=== PATIENT | male | born 1960 | race Caucasian/White ===

== ENCOUNTER 2017-11-22 18:05 | Inpatient (IN) | payer OTHER ==
[2017-11-22] MEDS ORDERED: ONDANSETRON 4 MG INJ IV ×2 (20:30→22:00)
[2017-11-22 20:52] LABS: WHITE BLOOD COUNT 11.4 10^3/ul (4.8-10.8)
[2017-11-22 20:52] LABS: ADD MAN DIFF? NO; BASOPHILS % 0.1 % (0.0-2.0); EOSINOPHILS % 0.1 % (0.0-7.0); HEMATOCRIT 38.2 % (42.0-52.0); HEMOGLOBIN 12.9 g/dl (14.0-18.0); LYMPHOCYTES # 1.1 10^3/ul (0.8-2.9); LYMPHOCYTES % 9.3 % (15.0-51.0); MEAN CORPUSCULAR HEMOGLOBIN 28.2 pg (29.0-33.0); MEAN CORPUSCULAR HGB CONC 33.8 g/dl (32.0-37.0); MEAN CORPUSCULAR VOLUME 83.6 fl (82.0-101.0); MEAN PLATELET VOLUME 9.2 fl (7.4-10.4); MONOCYTE # 0.9 10^3/ul (0.3-0.9); MONOCYTES % 7.7 % (0.0-11.0); NEUTROPHIL # 9.4 10^3/ul (1.6-7.5); NEUTROPHILS % 82.5 % (39.0-77.0); PLATELET COUNT 308 10^3/UL (140-415); RED BLOOD COUNT 4.57 10^6/ul (4.70-6.10); RED CELL DISTRIBUTION WIDTH 17.2 % (11.5-14.5)
[2017-11-22 21:06] LABS: HEMOGLOBIN A1C 6.1 % (0-5.9)
[2017-11-22 21:20] LABS: ALANINE AMINOTRANSFERASE 42 IU/L (13-69); ALBUMIN 3.2 g/dl (3.3-4.9); ALBUMIN/GLOBULIN RATIO 1.03; ALKALINE PHOSPHATASE 231 IU/L (42-121); ANION GAP 15 (8-16); ASPARTATE AMINO TRANSFERASE 63 IU/L (15-46); BILIRUBIN,INDIRECT 0.5 mg/dl (0-1.1); BILIRUBIN,TOTAL 0.5 mg/dl (0.2-1.3); BLOOD UREA NITROGEN 36 mg/dl (7-20); CALCIUM 8.8 mg/dl (8.4-10.2); CARBON DIOXIDE 38 mmol/L (21-31); CHLORIDE 74 mmol/L (97-110); CREATINE KINASE 32 IU/L (23-200); CREATININE 1.12 mg/dl (0.61-1.24); GLUCOSE 100 mg/dl (70-220); PHOSPHORUS 3.5 mg/dl (2.5-4.9); POTASSIUM 4.3 mmol/L (3.5-5.1); SODIUM 123 mmol/L (135-144); TOTAL PROTEIN 6.3 g/dl (6.1-8.1)
[2017-11-22 21:29] LABS: CK INDEX 1.8; CK-MB 0.58 ng/ml (0.0-2.4); TROPONIN-I 0.027 ng/ml (0.000-0.120)
[2017-11-22] MEDS ORDERED: IPRATROPIUM (NEB) 0.5 MG/2.5 ML AMP NEB (22:00)
[2017-11-22] MEDS ORDERED: NACL 0.9% 3 ML SYG IV (22:00)
[2017-11-22] MEDS: MIDODRINE 5 MG TAB PO (23:21)
[2017-11-22] MEDS: ALBUMIN HUMAN 25% 100 ML IV (23:22)
[2017-11-23] MEDS: ZOLPIDEM 5 MG TAB PO ×2 (00:07→20:30)
[2017-11-23] MEDS: ACETAMINOPHEN 500 MG TAB PO ×2 (00:07→20:29)
[2017-11-23] MEDS: SODIUM CHLORIDE 1 GM TAB PO ×4 (02:05→20:28)
[2017-11-23 02:14] LABS: ADD MAN DIFF? NO
[2017-11-23 02:16] LABS: WHITE BLOOD COUNT 10.8 10^3/ul (4.8-10.8)
[2017-11-23 02:16] LABS: BASOPHILS % 0.2 % (0.0-2.0); EOSINOPHILS % 0.1 % (0.0-7.0); HEMOGLOBIN 10.9 g/dl (14.0-18.0); LYMPHOCYTES # 1.1 10^3/ul (0.8-2.9); LYMPHOCYTES % 10.4 % (15.0-51.0); MEAN CORPUSCULAR HEMOGLOBIN 27.8 pg (29.0-33.0); MEAN CORPUSCULAR HGB CONC 34.1 g/dl (32.0-37.0); MEAN CORPUSCULAR VOLUME 81.6 fl (82.0-101.0); MONOCYTES % 8.9 % (0.0-11.0); NEUTROPHIL # 8.6 10^3/ul (1.6-7.5); NEUTROPHILS % 80.1 % (39.0-77.0); PLATELET COUNT 232 10^3/UL (140-415); RED BLOOD COUNT 3.92 10^6/ul (4.70-6.10); RED CELL DISTRIBUTION WIDTH 17.2 % (11.5-14.5)
[2017-11-23 02:31] LABS: HEMOGLOBIN A1C 6.1 % (0-5.9)
[2017-11-23 02:42] LABS: ANION GAP 13 (8-16); BLOOD UREA NITROGEN 35 mg/dl (7-20); CARBON DIOXIDE 36 mmol/L (21-31); CHLORIDE 79 mmol/L (97-110); CREATINE KINASE 30 IU/L (23-200); CREATININE 1.19 mg/dl (0.61-1.24); GLUCOSE 98 mg/dl (70-220); SODIUM 125 mmol/L (135-144)
[2017-11-23 02:49] LABS: B-TYPE NATRIURETIC PEPTIDE 8940 PG/ML (0-125)
[2017-11-23 02:54] LABS: CK INDEX 1.8; CK-MB 0.53 ng/ml (0.0-2.4); TROPONIN-I 0.045 ng/ml (0.000-0.120)
[2017-11-23 02:55] LABS: LACTIC ACID 1.4 mmol/L (0.5-2.0)
[2017-11-23] MEDS: POTASSIUM CHLORIDE (SR) 20 MEQ TAB PO ×2 (05:07→09:53)
[2017-11-23 06:22] LABS: ADD UMIC YES; UR ASCORBIC ACID NEGATIVE (NEGATIVE); UR BILIRUBIN (Dip) NEGATIVE (NEGATIVE); UR BLOOD (Dip) 3+ mg/dL (NEGATIVE); UR CLARITY CLEAR (CLEAR); UR COLOR YELLOW (YELLOW); UR GLUCOSE (Dip) NEGATIVE (NEGATIVE); UR KETONES (Dip) NEGATIVE (NEGATIVE); UR LEUKOCYTE ESTERASE (Dip) TRACE Leu/ul (NEGATIVE); UR NITRITE (Dip) NEGATIVE (NEGATIVE); UR RBC > 182 /HPF (0-5); UR SPECIFIC GRAVITY (Dip) 1.008 (1.003-1.030); UR TOTAL PROTEIN (Dip) NEGATIVE (NEGATIVE); UR UROBILINOGEN (Dip) NEGATIVE (NEGATIVE); UR WBC 4 /HPF (0-5)
[2017-11-23] MEDS: NICOTINE (21 MG/24 HR) PATCH TRANSDERM (09:54)
[2017-11-23] MEDS: SOD CHLORIDE 0.9% 500 ML IV (09:54)
[2017-11-23] MEDS: FAMOTIDINE 20 MG TAB PO ×2 (10:02→20:29)
[2017-11-23 12:56] LABS: INR 1.13; PROTIME 14.7 Sec (11.9-14.9); PT RATIO 1.1
[2017-11-23 12:57] LABS: PARTIAL THROMBOPLASTIN TIME 31.5 Sec (25.0-35.0)
[2017-11-23] MEDS: LIDOCAINE 1% (MPF) 5 ML VIAL (15:58)
[2017-11-23] MEDS: SPIRONOLACTONE 50 MG TAB PO (17:04)
[2017-11-23] MEDS: FUROSEMIDE 20 MG TAB PO (17:04)
[2017-11-24] MEDS: ZOLPIDEM 5 MG TAB PO (00:14)
[2017-11-24] MEDS: SPIRONOLACTONE 50 MG TAB PO (05:01)
[2017-11-24] MEDS: FUROSEMIDE 20 MG TAB PO (05:01)
[2017-11-24 06:55] LABS: ADD MAN DIFF? NO
[2017-11-24 07:07] LABS: BASOPHIL # 0.1 10^3/ul (0.0-0.1); BASOPHILS % 0.7 % (0.0-2.0); EOSINOPHILS # 0.1 10^3/ul (0.0-0.5); EOSINOPHILS % 0.5 % (0.0-7.0); HEMATOCRIT 36.1 % (42.0-52.0); LYMPHOCYTES % 10.7 % (15.0-51.0); MEAN CORPUSCULAR HEMOGLOBIN 27.8 pg (29.0-33.0); MEAN CORPUSCULAR HGB CONC 33.2 g/dl (32.0-37.0); MEAN CORPUSCULAR VOLUME 83.8 fl (82.0-101.0); MEAN PLATELET VOLUME 9.1 fl (7.4-10.4); MONOCYTES % 10.1 % (0.0-11.0); NEUTROPHIL # 7.4 10^3/ul (1.6-7.5); NEUTROPHILS % 77.6 % (39.0-77.0); PLATELET COUNT 235 10^3/UL (140-415); RED BLOOD COUNT 4.31 10^6/ul (4.70-6.10); RED CELL DISTRIBUTION WIDTH 17.2 % (11.5-14.5)
[2017-11-24 07:07] LABS: WHITE BLOOD COUNT 9.6 10^3/ul (4.8-10.8)
[2017-11-24 07:40] LABS: BLOOD UREA NITROGEN 20 mg/dl (7-20); CHLORIDE 79 mmol/L (97-110); CREATININE 0.81 mg/dl (0.61-1.24); GLUCOSE 78 mg/dl (70-220); SODIUM 129 mmol/L (135-144)
[2017-11-24 07:43] LABS: POTASSIUM 2.4 mmol/L (3.5-5.1)
[2017-11-24 07:53] LABS: ANION GAP 10 (8-16); CARBON DIOXIDE 42 mmol/L (21-31)
[2017-11-24] MEDS: NICOTINE (21 MG/24 HR) PATCH TRANSDERM (08:13)
[2017-11-24] MEDS: POTASSIUM CHLORIDE (SR) 20 MEQ TAB PO ×2 (08:13→11:31)
[2017-11-24] MEDS: SODIUM CHLORIDE 1 GM TAB PO ×2 (08:13→14:22)
[2017-11-24] MEDS: FAMOTIDINE 20 MG TAB PO (08:14)
== END 2017-11-24 15:28 | disposition home or self-care (01) | DRG 314 ==
LOC: TEL 18:05
PROC: 0W9G3ZZ Drainage of Peritoneal Cavity, Percutaneous Approach (ICD-10-PCS; principal; 2017-11-23)
DX: I95.89 Other hypotension (principal); I50.23 Acute on chronic systolic (congestive) heart failure; R18.8 Other ascites; E87.1 Hypo-osmolality and hyponatremia; K74.60 Unspecified cirrhosis of liver; I11.0 Hypertensive heart disease with heart failure; E86.0 Dehydration; E87.6 Hypokalemia; J44.9 Chronic obstructive pulmonary disease, unspecified; F17.210 Nicotine dependence, cigarettes, uncomplicated
CPT/HCPCS: 71045; 76700; 80048; 80053; 81001; 82550; 82553; 83036; 83605; 83735; 83880; 84100; 84443; 84484; 85025; 85610; 85730; 87081; 93306

== ENCOUNTER 2018-05-10 07:18 | Emergency (ER) | payer SELFPAY, OTHER ==
[2018-05-10 08:55] LABS: ADD MAN DIFF? NO
[2018-05-10] MEDS: ONDANSETRON (ODT) 4 MG TAB ODT (08:56)
[2018-05-10] MEDS: HYDROmorphONE 1 MG/ML SYG IM (09:00)
[2018-05-10 09:27] LABS: INR 1.09; PROTIME 14.2 Sec (11.9-14.9); PT RATIO 1.1
[2018-05-10 09:28] LABS: WHITE BLOOD COUNT 10.4 10^3/ul (4.8-10.8)
[2018-05-10 09:28] LABS: BASOPHIL # 0.1 10^3/ul (0.0-0.1); BASOPHILS % 0.5 % (0.0-2.0); EOSINOPHILS # 0.1 10^3/ul (0.0-0.5); EOSINOPHILS % 1.1 % (0.0-7.0); HEMATOCRIT 40.4 % (42.0-52.0); LYMPHOCYTES % 9.8 % (15.0-51.0); MEAN CORPUSCULAR HEMOGLOBIN 29.9 pg (29.0-33.0); MEAN CORPUSCULAR HGB CONC 32.2 g/dl (32.0-37.0); MEAN CORPUSCULAR VOLUME 92.9 fl (82.0-101.0); MONOCYTE # 0.8 10^3/ul (0.3-0.9); MONOCYTES % 7.8 % (0.0-11.0); NEUTROPHIL # 8.3 10^3/ul (1.6-7.5); NEUTROPHILS % 80.2 % (39.0-77.0); PARTIAL THROMBOPLASTIN TIME 29.3 Sec (23.0-35.0); PLATELET COUNT 330 10^3/UL (140-415); RED BLOOD COUNT 4.35 10^6/ul (4.70-6.10); RED CELL DISTRIBUTION WIDTH 16.7 % (11.5-14.5)
[2018-05-10 09:45] LABS: ALANINE AMINOTRANSFERASE 34 IU/L (13-69); ALBUMIN/GLOBULIN RATIO 1.03; ALKALINE PHOSPHATASE 257 IU/L (42-121); ANION GAP 9 (5-13); ASPARTATE AMINO TRANSFERASE 48 IU/L (15-46); BILIRUBIN,INDIRECT 0.2 mg/dl (0-1.1); BILIRUBIN,TOTAL 0.2 mg/dl (0.2-1.3); BLOOD UREA NITROGEN 44 mg/dl (7-20); CALCIUM 8.5 mg/dl (8.4-10.2); CARBON DIOXIDE 27 mmol/L (21-31); CHLORIDE 92 mmol/L (97-110); CREATININE 1.44 mg/dl (0.61-1.24); Estimated GFR 51 mL/min (>60); GLUCOSE 98 mg/dl (70-220); POTASSIUM 4.3 mmol/L (3.5-5.1); SODIUM 128 mmol/L (135-144); TOTAL PROTEIN 5.9 g/dl (6.1-8.1)
[2018-05-10] MEDS ORDERED: LIDOCAINE 1% (MPF) 5 ML VIAL (12:26)
== END 2018-05-10 12:48 | disposition home or self-care (01) ==
LOC: E/R 07:18
DX: R18.8 Other ascites (principal); E87.1 Hypo-osmolality and hyponatremia; R40.2142 Coma scale, eyes open, spontaneous, at arrival to emergency department; R40.2252 Coma scale, best verbal response, oriented, at arrival to emergency department; R40.2362 Coma scale, best motor response, obeys commands, at arrival to emergency department; I50.9 Heart failure, unspecified; R06.00 Dyspnea, unspecified; Z87.891 Personal history of nicotine dependence
CPT/HCPCS: 80053; 85025; 85610; 85730; 96372; 99285-25

== ENCOUNTER 2018-05-12 10:51 | Emergency (ER) | payer SELFPAY ==
[2018-05-12] MEDS: HYDROmorphONE 1 MG/ML SYG IM (11:56)
[2018-05-12] MEDS: ONDANSETRON (ODT) 4 MG TAB ODT (11:56)
[2018-05-12] MEDS: LIDOCAINE 1% (MPF) 5 ML VIAL (15:03)
== END 2018-05-12 15:21 | disposition home or self-care (01) ==
LOC: E/R 10:51
DX: R18.8 Other ascites (principal); I50.9 Heart failure, unspecified; F17.210 Nicotine dependence, cigarettes, uncomplicated
CPT/HCPCS: 96372; 99285-25

== ENCOUNTER 2018-05-16 06:09 | Emergency (ER) | payer MEDICAID ==
[2018-05-16] MEDS: PANTOPRAZOLE (EC) 40 MG TAB PO (06:41)
[2018-05-16] MEDS: LIDOCAINE/MYLANTA 40 ML BTL PO (06:41)
[2018-05-16] MEDS: LIDOCAINE 1% (MPF) 5 ML VIAL (10:08)
== END 2018-05-16 10:59 | disposition home or self-care (01) ==
LOC: E/R 06:09
DX: R18.8 Other ascites (principal); R10.84 Generalized abdominal pain; I50.9 Heart failure, unspecified; F17.210 Nicotine dependence, cigarettes, uncomplicated
CPT/HCPCS: 99285-25; Z7502

== ENCOUNTER 2018-05-20 11:35 | Emergency (ER) | payer MEDICAID ==
[2018-05-20] MEDS: HYDROmorphONE 0.5 MG/0.5 ML SYG IV (21:36)
== END 2018-05-20 23:12 | disposition home or self-care (01) ==
LOC: E/R 11:35
DX: K70.31 Alcoholic cirrhosis of liver with ascites (principal); R05 Cough; G89.29 Other chronic pain; J44.9 Chronic obstructive pulmonary disease, unspecified; I50.9 Heart failure, unspecified; Z87.891 Personal history of nicotine dependence
CPT/HCPCS: 71045; 96374; 99284-25